=== PATIENT | male | born 1990 | race Caucasian/White ===

== ENCOUNTER 2016-09-28 07:54 | Emergency (ER) | payer OTHER ==
--- NOTE | 2016-09-28 10:01 | ER Document Report ---
ED General - General Chief Complaint: Toothache Stated Complaint: TOOTH PAIN Time Seen by Provider: 09/28/16 10:00 Mode of Arrival: Ambulatory Information source: Patient Notes: Patient is a 26-year-old male who presents with upper and lower right-sided jaw pain that started suddenly when he woke up this morning. He has not taken anything for pain. He states the pain radiates up into his face and appearing in a headache. He is unsure which tooth is bothering him. He states he is unable to afford a dentist because he does not have health insurance. Denies any fever, chills, gum swelling or bleeding. TRAVEL OUTSIDE OF THE U.S. IN LAST 30 DAYS: No - Related Data Allergies/Adverse Reactions: cortisone [Cortisone] Allergy (Severe, Verified 09/28/16 07:57) Abscess at injection site hydrocodone bitartrate [From Vicodin] Allergy (Verified 09/28/16 07:57) Past Medical History - General Information source: Patient - Social History Smoking Status: Current Every Day Smoker Family History: Reviewed & Not Pertinent, DM Patient has suicidal ideation: No Patient has homicidal ideation: No Neurological Medical History: Denies: Hx Seizures Renal/ Medical History: Denies: Hx Peritoneal Dialysis Past Surgical History: Reports: Hx Abdominal Surgery - hernia repair, Hx Orthopedic Surgery - left knee benign bone tumor removed - Immunizations Hx Diphtheria, Pertussis, Tetanus Vaccination: Yes Review of Systems - Review of Systems Constitutional: See HPI EENT: See HPI Cardiovascular: No symptoms reported Respiratory: No symptoms reported Gastrointestinal: No symptoms reported Genitourinary: No symptoms reported Male Genitourinary: No symptoms reported Musculoskeletal: No symptoms reported Skin: No symptoms reported Hematologic/Lymphatic: No symptoms reported Neurological/Psychological: No symptoms reported Physical Exam - Vital signs Vitals: Temp Pulse Resp BP Pulse Ox 98.3 F 44 L 15 134/67 H 100 09/28/16 07:59 09/28/16 07:59 09/28/16 07:59 09/28/16 07:59 09/28/16 07:59 - Notes Notes: PHYSICAL EXAM: CONSTITUTIONAL: Alert and oriented, well-appearing and in no acute distress. HENT: Normocephalic, atraumatic. Ear canals without erythema or foreign body, TMs pearly ramirez with good bony landmarks. Nares clear without erythema, septal hematoma or deviation, airway patent. Oropharynx clear without erythema, tonsilar exudate or malocclusion. Trachea midline. Uvula midline. Moist mucous membranes. Multiple dental caries with tooth decay on all teeth, most notably #1 -3, 30-32 without gingival or buccal mucosal swelling. No palpable area of infection. EYES: Pupils equal round and reactive to light, EOM intact. Sclera anicteric, conjunctiva are normal. No entrapment. NECK: supple without lymphadenopathy. No midline tenderness or paraspinous muscle spasms. No step-offs or deformities. ROM intact. HEART: Regular rate and rhythm without murmurs. LUNGS: CTAB and equal. No wheezes, rales or rhonchi. BACK: nontender, no paraspinous spasm, 5+/5 strengths, DTRs 2+, SLR -. EXTREMITIES: Normal range of motion, no pitting edema. No cyanosis. Cap Refill < 3 seconds. NEURO: Cranial nerves grossly intact. Normal sensory/motor exams. PSYCH: Normal mood, normal affect. SKIN: Warm and dry. Normal turgor. No rashes or lesions noted. Course - Re-evaluation Re-evalutation: 09/28/16 10:29 Patient seen and examined. Multiple dental caries and tooth decay on all teeth but most notably #1-3, 30-32. Discussed free access to dental care in [facility], [place] and patient states he will would be unable to get off work and drive there. Will provide list of other reduced rate dental care locations for patient. Given 1 dose of pain medicine here, will provides prescriptions for antibiotics and pain medicine to go home with. At this time, will discharge with return precautions and follow-up recommendations. Verbal discharge instructions given at the bedside and opportunity for questions given. Medication warnings reviewed. Patient is in agreement with this plan and has verbalized understanding of return precautions and the need for primary care follow-up in the next 24-72 hours. - Vital Signs Vital signs: Temp Pulse Resp BP Pulse Ox 98.3 F 44 L 15 134/67 H 100 09/28/16 07:59 09/28/16 07:59 09/28/16 07:59 09/28/16 07:59 09/28/16 07:59 Discharge - Discharge Clinical Impression: Dental caries, Toothache Condition: Stable Disposition: HOME, SELF-CARE Additional Instructions: TOOTHACHE: Your pain is due to dental decay. The tooth must be repaired in order for you to feel better. You will, therefore, be referred to a dentist. We do not have dentists on the staff at [facility]. Severe swelling or drainage around a tooth usually means a dental abscess. This also requires evaluation and treatment by the dentist, but antibiotics may be prescribed while awaiting dental treatment. You should be rechecked immediately if you develop major swelling of the face, increasing pain, a lump in the jaw or gums, headache, difficulty swallowing, or fever. ORAL NARCOTIC MEDICATION: You have been given a prescription for pain control. This medication is a narcotic. It's best taken with food, as nausea can result if taken on an empty stomach. Don't operate machinery or drive within six hours of taking this medication. Do not combine this medicine with alcohol, or with any medication which can cause sedation (such as cold tablets or sleeping pills) unless you get permission from the physician. Narcotics tend to cause constipation. If possible, drink plenty of fluids and eat a diet high in fiber and fruits. Please be aware that prescription narcotics also have the potential for abuse. People become addicted to these medications because of the general sense of wellbeing that they induce. This feeling along with a significant reduction in tension, anxiety, and aggression provides a stimulating seductive quality to these drugs. Once your pain is under control, we encourage you to discard your unused narcotics. FOLLOW-UP CARE: You have been referred for follow-up care to the dentists listed below. Call the dentists office for an appointment as you were instructed or within the next two days. If you experience worsening or a significant change in your symptoms, notify the physician immediately or return to the Emergency Department at any time for re-evaluation. [facility] [address] [place], [place] Sunday mornings, by appointment [facility] [address] [place] [address] [facility] [address] [facility] [address] [facility].C. [facility] [address] [facility] [email or web address] [facility] [address] [place] [address] Sunday- 8:00am to 5:00 pm Will see patients from other [facility]. Charges based on income and family size and accepts Medicare, Medicaid, and Insurances Will pull molars [facility] Student [facility]ics [facility] [id number] Hours of Operation 8:00 am - 4:30 pm weekdays The following dental offices accept Medicaid: [facility] Dr. Butt Dr. Dos Santos Dr. Brown Dr. Dennison Jared Christian, María, and Steven oral surgery Dr. Combs ([place]) Dr. Crowell ([place]) [facility] Drs. Cole ([place]) Dr. Delatorre ([place]) [facility] Dr. Rivera ([place]) Drs. Mcmanus and ([place]) Medicaid Care Line Prescriptions: Acetaminophen with Codeine [Tylenol #3 Tablet] 1 each PO Q6HP PRN #20 tablet PRN Reason: Amox Tr/Potassium Clavulanate [Augmentin 875-125 Tablet] 1 tab PO BID 10 Days Forms: Elevated Blood Pressure, Return to Work
[2016-09-28] MEDS ORDERED: OXYCODONE-ACETAMINOPHEN 5-325 MG TABLET PO ONE (10:21)
[2016-09-28 10:54] VITALS: BP 126/68
== END 2016-09-28 10:55 | disposition home or self-care (01) ==
LOC: ER 07:54
DX: K02.9 Dental caries, unspecified (principal); R68.84 Jaw pain; F17.200 Nicotine dependence, unspecified, uncomplicated
CPT/HCPCS: 99282

== ENCOUNTER 2017-01-13 13:00 | Emergency (ER) | payer OTHER ==
[2017-01-13] MEDS ORDERED: DIPHENHYDRAMINE HCL 25 MG CAPSULE PO ONE (13:30)
[2017-01-13] MEDS ORDERED: BUPIVACAINE HCL 0.5 % INJ/PF 30 ML SDV INJ ONE (13:30)
[2017-01-13] MEDS ORDERED: PENICILLIN V POTASSIUM 500 MG TABLET PO ONE (13:30)
[2017-01-13] MEDS ORDERED: OXYCODONE-ACETAMINOPHEN 5-325 MG TABLET PO ONE (13:30)
--- NOTE | 2017-01-13 13:40 | ER Document Report ---
ED Oral Problem - General Chief Complaint: Toothache Stated Complaint: TOOTH PAIN Time Seen by Provider: 01/13/17 13:19 Notes: Patient is a 26-year-old male presents emergency department complaining of left upper jaw pain. Patient states that that started about 2 days ago. Patient states that he has poor dentition and often gets tooth infections. Patient states that he has been trying to come up with enough money to be seen by an oral surgeon to have dental extraction. Patient denies any fever, chills admits to associated headache that is responding to Motrin. Otherwise he denies any nausea, vomiting, fever, chills, difficulty swallowing, difficulty breathing. Tolerating p.o. without any difficulty otherwise healthy male TRAVEL OUTSIDE OF THE U.S. IN LAST 30 DAYS: No - Related Data Allergies/Adverse Reactions: cortisone [Cortisone] Allergy (Severe, Verified 09/28/16 07:57) Abscess at injection site hydrocodone bitartrate [From Vicodin] Allergy (Verified 09/28/16 07:57) Past Medical History - Social History Smoking Status: Current Every Day Smoker Chew tobacco use (# tins/day): No Frequency of alcohol use: None Drug Abuse: None Family History: Reviewed & Not Pertinent, DM Neurological Medical History: Denies: Hx Seizures Renal/ Medical History: Denies: Hx Peritoneal Dialysis Past Surgical History: Reports: Hx Abdominal Surgery - hernia repair, Hx Orthopedic Surgery - left knee benign bone tumor removed - Immunizations Hx Diphtheria, Pertussis, Tetanus Vaccination: Yes Review of Systems - Review of Systems Constitutional: No symptoms reported EENT: See HPI -: Yes All other systems reviewed and negative Physical Exam - Vital signs Vitals: Temp Pulse Resp BP Pulse Ox 98 F 44 L 16 147/79 H 98 01/13/17 13:03 01/13/17 13:03 01/13/17 13:03 01/13/17 13:03 01/13/17 13:03 - General General appearance: Appears well, Alert In distress: None - HEENT Mouth/Lips: Caries, Dental fracture Mucous membranes: Normal Teeth diagram: 1 - Evidence of dental caries with enamel decay and chronic fractures. Patient states that teeth 15-18 are the source of his pain. No surrounding gingival inflammation or abscess Pharynx: Normal. No: Peritonsillar abscess, Retropharyngeal abscess, Potential airway comprom. Neck: Normal, Supple - Respiratory Respiratory status: No respiratory distress Chest status: Nontender Breath sounds: Normal Chest palpation: Normal - Cardiovascular Rhythm: Regular Heart sounds: Normal auscultation, S1 appreciated, S2 appreciated - Neurological Neuro grossly intact: Yes Cognition: Normal Orientation: AAOx4 Maru Coma Scale Eye Opening: Spontaneous Maru Coma Scale Verbal: Oriented Gray Coma Scale Motor: Obeys Commands Gray Coma Scale Total: 15 Speech: Normal Cranial nerves: Normal Cerebellar coordination: Normal Additional motor exam normals: Equal legal practice manager. No: Weakness Sensory: Normal Course - Re-evaluation Re-evalutation: 01/13/17 14:04 Presentation is most consistent with likely an infected tooth. Airway is patent. Vitals within normal limits. Patient is able swallow without any difficulty. There is no significant facial swelling. Patient will be started on antibiotics. I've instructed to follow-up with dentistry as earliest ability for definitive management. Return precautions and follow-up recommendations have been discussed at length. - Vital Signs Vital signs: Temp Pulse Resp BP Pulse Ox 98 F 44 L 16 147/79 H 98 01/13/17 13:03 01/13/17 13:03 01/13/17 13:03 01/13/17 13:03 01/13/17 13:03 Procedures - Additional Procedures Dental block Additional Procedures: Other Discharge - Discharge Clinical Impression: Toothache Condition: Good Disposition: HOME, SELF-CARE Instructions: Penicillin V K ([facility]), Toothache ([facility]) Additional Instructions: You have been seen for dental pain. It is very important that you follow-up with a dentist for definitive care. Please return if you develop fever greater than 101, swelling in your face, vomiting, difficulty breathing or swallowing, or any other symptoms that are concerning to you. For pain you should take ibuprofen 600 mg every 6 hours as needed. [facility] [address] [place], [place] Sunday mornings, by appointment [facility] [address] [place] [address] [facility] [address] [facility] [address] [email or web address] [facility] [address] [place] [address] Sunday- 8:00am to 5:00 pm Will see patients from other [facility]. Charges based on income and family size and accepts Medicare, Medicaid, and Insurances Will pull molars [facility] Student [facility] [place]note 2] [id number] Hours of Operation 8:00 am - 4:30 pm weekdays The following dental offices accept Medicaid: [facility] Dr. Butt Dr. Dos Santos Dr. Brown Dr. Dennison Jared Christian, María, and Steven oral surgery Dr. Combs ([place]) Dr. Crowell ([place]) [facility] Drs. Cole ([place]) Dr. Delatorre ([place]) [facility] Dr. Rivera ([place]) Drs. Mcmanus and ([place]) Medicaid Care Line Prescriptions: Penicillin V Potassium [Penicillin Vk 500 mg Tablet] 500 mg PO BID #20 tablet
[2017-01-13] MEDS ORDERED: LIDOCAINE 2% VISCOUS SOLN 20 ML UDCUP PO ONE (14:06)
[2017-01-13 14:19] VITALS: BP 127/63
== END 2017-01-13 14:19 | disposition home or self-care (01) ==
LOC: ER 13:00
PROC: 3E0T3BZ Introduction of Anesthetic Agent into Peripheral Nerves and Plexi, Percutaneous Approach (ICD-10-PCS; principal; 2017-01-13)
DX: K08.89 Other specified disorders of teeth and supporting structures (principal); R68.84 Jaw pain; F17.200 Nicotine dependence, unspecified, uncomplicated
CPT/HCPCS: 99282; 64400; J3490

== ENCOUNTER 2017-01-14 06:39 | Emergency (ER) | payer OTHER ==
[2017-01-14 06:45] VITALS: BP 134/68
--- NOTE | 2017-01-14 07:03 | ER Document Report ---
ED General - General Mode of Arrival: Ambulatory Information source: Patient TRAVEL OUTSIDE OF THE U.S. IN LAST 30 DAYS: No - HPI Onset: Other - 2-3 days Associated symptoms: Other - see above - General Chief Complaint: Toothache Stated Complaint: HEADACHE, TOOTACHE Time Seen by Provider: 01/14/17 06:49 Notes: Patient is a 26 year old male who presents to the ED with complaints of a migraine, facial pain, ear pain and dental pain x2-3 days. Patient was seen in the ED yesterday and given antibiotics for his dental pain and was told to follow up with a dentist. Patient states he use to have migraines and was on Imatrex. Patient states this feels like a normal migraine for him. He does not have a PCP. (LEONOR HERNANDEZ) - Related Data Allergies/Adverse Reactions: cortisone [Cortisone] Allergy (Severe, Verified 01/14/17 06:42) Abscess at injection site hydrocodone bitartrate [From Vicodin] Allergy (Verified 01/14/17 06:42) Past Medical History - General Information source: Patient - Social History Smoking Status: Unknown if Ever Smoked Family History: Reviewed & Not Pertinent, DM Patient has suicidal ideation: No Patient has homicidal ideation: No Neurological Medical History: Denies: Hx Seizures Renal/ Medical History: Denies: Hx Peritoneal Dialysis Past Surgical History: Reports: Hx Abdominal Surgery - hernia repair, Hx Orthopedic Surgery - left knee benign bone tumor removed - Immunizations Hx Diphtheria, Pertussis, Tetanus Vaccination: Yes Review of Systems - Review of Systems Constitutional: No symptoms reported EENT: See HPI, Blurred vision, Ear pain, Mouth pain, Other - facial pain Cardiovascular: No symptoms reported Respiratory: No symptoms reported Gastrointestinal: No symptoms reported Genitourinary: No symptoms reported Male Genitourinary: No symptoms reported Musculoskeletal: No symptoms reported Skin: No symptoms reported Hematologic/Lymphatic: No symptoms reported Neurological/Psychological: See HPI, Headaches Physical Exam - General General appearance: Appears well, Alert In distress: None - HEENT Head: Normocephalic, Atraumatic, Other - no facial swelling Eyes: Normal Extraocular movements intact: Yes Pupils: PERRL Mouth/Lips: Other - more dentition throughout, no abscess, all teeth are rotton Neck: Normal - Respiratory Respiratory status: No respiratory distress Breath sounds: Normal - Cardiovascular Rhythm: Regular Heart sounds: Normal auscultation Murmur: No - Abdominal Inspection: Normal Distension: No distension Tenderness: Nontender - Back Back: Normal - Extremities General upper extremity: Normal inspection, Normal ROM General lower extremity: Normal inspection, Normal ROM - Neurological Neuro grossly intact: Yes - Psychological Associated symptoms: Normal affect, Normal mood - Skin Skin Temperature: Warm Skin Moisture: Dry Skin Color: Normal - Vital signs Vitals: Temp Pulse Resp BP Pulse Ox 97.7 F 43 L 18 134/68 H 100 01/14/17 06:42 01/14/17 06:42 01/14/17 06:42 01/14/17 06:42 01/14/17 06:42 - Vital Signs Vital signs: Temp Pulse Resp BP Pulse Ox 97.7 F 67 18 134/68 H 100 01/14/17 06:42 01/14/17 07:20 01/14/17 06:42 01/14/17 06:42 01/14/17 06:42 Discharge - Discharge Clinical Impression: Chronic dental pain Cephalgia Qualifiers: Headache type: unspecified Headache chronicity pattern: unspecified pattern Intractability: not intractable Qualified Code(s): R51 - Headache Condition: Stable Disposition: HOME, SELF-CARE Additional Instructions: Toothache Your pain is due to dental decay. The tooth must be repaired in order for you to feel better. You will, therefore, be referred to a dentist. Severe swelling or drainage around a tooth usually means a deep dental abscess. This also requires evaluation and treatment by the dentist, but antibiotics may be prescribed while awaiting dental treatment. You should be rechecked immediately if you develop major swelling of the face, increasing pain, a lump in the jaw or gums, headache, or fever. Headache The physician does not feel that the headache you are experiencing has a serious underlying cause. Most headaches are due to emotional stress, with resultant muscle tension (tension headache). Occasionally, headaches are secondary to changes in the blood vessels of the scalp (vascular headache and migraine headache). Sometimes, a headache is the first symptom of another developing illness, such as a viral infection. You have no evidence of stroke, bleeding, meningitis, or other serious cause of your headache. The treatment of headaches varies with the severity and cause of the pain. Not all headaches need pain shots. In fact, there is evidence that using narcotics for headaches may make them worse in the long run. The physician will determine the therapy that's in your best interest. If you develop a fever, if the headache is different from any you've previously experienced, or if the headache progressively worsens, then call your physician at once or go to the emergency room. Referrals: [facility] [Provider Group] - Follow up in 3-5 days Domonique Attestation: 01/14/17 07:08 I personally performed the services described in the documentation reviewed the documentation recorded by my scribe in my presence and it accurately and completely records my words and actions (JOCELYN ROSENBAUM) Domonique Documentation - Scribe Written by Domonique:: domonique Cain, 01/14/2017, 1021 acting as scribe for :: García
[2017-01-14] MEDS ORDERED: KETOROLAC TROMETHAMINE 60 MG/2 ML SDV IM ONE (07:05)
[2017-01-14] MEDS ORDERED: DIPHENHYDRAMINE HCL 50 MG/ML VIAL IM ONE (07:05)
[2017-01-14] MEDS ORDERED: METOCLOPRAMIDE HCL 10 MG TABLET PO ONE (07:06)
--- NOTE | 2017-01-14 13:53 | ER Document Report ---
Doctor's Note Notes: 01/14/17 13:52 Patient seen and evaluated at bedside in no acute distress has poor dentition throughout no active dental abscesses or cellulitis. He is requesting narcotics. He is not appropriate in this situation. He also has friends with him that are sleeping on the floor. Patient was already seen yesterday given antibiotics follow-up with the dental physician and they said he could not have that many teeth removed so he has been given instructions to go elsewhere. He is awake alert GCS 15 no neurological deficits given family doctor for follow- up and dental list. Discussed reasons for ED return sooner
== END 2017-01-14 07:29 | disposition home or self-care (01) ==
LOC: ER 06:39
DX: G89.29 Other chronic pain (principal); K08.9 Disorder of teeth and supporting structures, unspecified; R51 Headache; H92.09 Otalgia, unspecified ear; Z88.6 Allergy status to analgesic agent
CPT/HCPCS: 99283; 96372; J1200; J1885

== ENCOUNTER 2017-01-14 16:17 | Emergency (ER) | payer OTHER ==
[2017-01-14 16:26] VITALS: BP 138/69
--- NOTE | 2017-01-14 16:46 | ER Document Report ---
HPI - HPI Pain Level: 5 Notes: Patient is a 26-year-old male who presents the ED complaining of left upper and lower jaw pain, dental pain, and left-sided headache 3 days. Patient states that he has not been able to work because of the pain. Patient was seen on the , yesterday, and was given a dental block and antibiotics. Patient states that the dental block worked really well for him for a while, but the pain returned. Patient then returned this morning and was given a migraine cocktail of Toradol, Compazine, and Benadryl which only lasted for an hour or 2 when he got home and then his pain in his mouth came back. Patient states that he has been taking his antibiotic as directed. He was given viscous lidocaine at his other visit, but that does not last for more than 20 minutes at a time. Otherwise he is still able to eat and drink, but does have a decreased appetite. Patient states that he is allergic to cortisone and hydrocodone. Denies any fever, neck pain/stiffness, changes in vision/speech/mentation/ hearing, URI, sore throat, chest pain, palpitations, syncope, cough, shortness of breath, wheeze, dyspnea, abdominal pain, nausea/vomiting/diarrhea, urinary retention, dysuria, hematuria, or rash. - ROS Notes: REVIEW OF SYSTEMS: CONSTITUTIONAL : Denies fever, chills, or sweats. Denies recent illness. EENT: see hpi CARDIOVASCULAR: Denies chest pain. Denies palpitations or racing or irregular heart beat. Denies ankle edema. RESPIRATORY: Denies cough, cold, or chest congestion. Denies shortness of breath, difficulty breathing, or wheezing. GASTROINTESTINAL: Denies abdominal pain or distention. Denies nausea, vomiting , or diarrhea. Denies blood in vomitus, stools, or per rectum. Denies black, tarry stools. Denies constipation. GENITOURINARY: Denies difficulty urinating, painful urination, burning, frequency, blood in urine, or discharge. MUSCULOSKELETAL: Denies back or neck pain or stiffness. Denies joint pain or swelling. SKIN: Denies rash, lesions or sores. NEUROLOGICAL: see hpi. Denies confusion or altered mental status. Denies passing out or loss of consciousness. Denies dizziness or lightheadedness. Denies weakness or paralysis or loss of use of either side. Denies problems with gait or speech. Denies sensory loss, numbness, or tingling. Denies seizures. PSYCHIATRIC: Denies anxiety or stress. Denies depression, suicidal ideation, or homicidal ideation. ALL OTHER SYSTEMS REVIEWED AND NEGATIVE. Dictation was performed using [employer] voice recognition software - REPRODUCTIVE Reproductive: DENIES: : - DERM Skin Color: Normal Past Medical History - Social History Smoking Status: Current Every Day Smoker Family History: Reviewed & Not Pertinent, DM Patient has suicidal ideation: No Patient has homicidal ideation: No Neurological Medical History: Denies: Hx Seizures Renal/ Medical History: Denies: Hx Peritoneal Dialysis Past Surgical History: Reports: Hx Abdominal Surgery - hernia repair, Hx Orthopedic Surgery - left knee benign bone tumor removed - Immunizations Hx Diphtheria, Pertussis, Tetanus Vaccination: Yes Vertical Provider Document - CONSTITUTIONAL Agree With Documented VS: Yes Notes: PHYSICAL EXAMINATION: GENERAL: Well-appearing, well-nourished and in no acute distress. HEAD: Atraumatic, normocephalic. EYES: Pupils equal round and reactive to light, extraocular movements intact, sclera anicteric, conjunctiva are normal. ENT: EAC clear b/l. TM's intact b/l without erythema, fluid, or perforation. Nares patent and without discharge. oropharynx clear without exudates. No tonsilar hypertrophy or erythema. Moist mucous membranes. No sinus tenderness. Uvula midline. No palatine shift. No tongue protrusion. No facial swelling. Mouth: Poor dentition throughout with caries and decay. No abscess or purulent discharge noted. + minimal tenderness to the #17-18, #16. NECK: Normal range of motion, supple without lymphadenopathy. No rigidity/ meningismus. LUNGS: Breath sounds clear to auscultation bilaterally and equal. No wheezes rales or rhonchi. HEART: Regular rate and rhythm without murmurs, rubs, gallops. Extremities: No cyanosis, clubbing, or edema b/l. Peripheral pulses 2+. Capillary refill less than 3 seconds. NEUROLOGICAL: Cranial nerves grossly intact. Normal speech, normal gait. Normal sensory, motor exams PSYCH: Normal mood, normal affect. SKIN: Warm, Dry, normal turgor, no rashes or lesions noted. - INFECTION CONTROL TRAVEL OUTSIDE OF THE [place] IN LAST 30 DAYS: No - RESPIRATORY O2 Sat by Pulse Oximetry: 98 Course - Re-evaluation Re-evalutation: 01/14/17 17:30 Patient is an afebrile, well-hydrated, 26-year-old male who presents the ED for his third visit in 24 hours for the same toothache/LAMBERT. Vitals are stable. PE otherwise unremarkable for any focal neurological deficits. Pt has very poor dentition throughout. Pt has already been prescribed antibiotics. He has not tried to call any dentist office at this time (although most are closed on sundays). Pt was already told by Dr. Mariano that he will not be getting any narcotics for his pain. A local dental block for his #16 dental pain was performed successfully w/o complication. Mandibular dental block to the left side was also performed successfully w/o complication. Pt noted improvement/ resolution of his pain and LAMBERT thereafter. Low suspicion for any meningitis, sepsis, peritonsillar/pharyngeal abscess, respiratory compromise, Manoj's, temporal arteritis, or other emergent systemic condition at this time. Patient is aware this condition can change from initial presentation and he needs to monitor symptoms closely. Conservative measures otherwise for symptoms. Call to schedule an appointment with a dentist for further evaluation and management. Recheck with your PCM this week as well. Return to the ED with any worsening/concerning symptoms otherwise as reviewed in discharge. Patient is in agreement. - Vital Signs Vital signs: Temp Pulse Resp BP Pulse Ox 98.3 F 44 L 12 138/69 H 98 01/14/17 16:23 01/14/17 16:23 01/14/17 16:23 01/14/17 16:23 01/14/17 16:23 Discharge - Discharge Clinical Impression: Toothache Condition: Stable Disposition: HOME, SELF-CARE Instructions: [facility], Dentist, Toothache ([facility]) Additional Instructions: [place] and floss twice daily Maintain fluid intake Take antibiotics as directed Mouthwash, salt water gargles, peroxide rinse as needed Tylenol/ibuprofen as needed Recheck/establish with your PCM this week Call today/tomorrow and schedule an appointment with your dentist for further evaluation* Return to the ED with any worsening symptoms and/or development of fever, headache, facial swelling, swelling of lips/tongue/throat, trouble swallowing, drooling, hoarseness, neck pain/stiffness, chest pain, palpitations, syncope, shortness of breath, trouble breathing, abdominal pain, n/v/d, numbness/tingling , or other worsening symptoms that are concerning to you. Forms: Elevated Blood Pressure Referrals: [facility] [Provider Group] - Follow up as needed [facility] [Provider Group] - Follow up as needed [facility] [Provider Group] - Follow up as needed
== END 2017-01-14 17:34 | disposition home or self-care (01) ==
LOC: ER 16:17
PROC: 3E0T3BZ Introduction of Anesthetic Agent into Peripheral Nerves and Plexi, Percutaneous Approach (ICD-10-PCS; principal; 2017-01-14)
DX: K08.9 Disorder of teeth and supporting structures, unspecified (principal); R68.84 Jaw pain; F17.200 Nicotine dependence, unspecified, uncomplicated
CPT/HCPCS: 99282

== ENCOUNTER 2017-01-23 10:06 | Emergency (ER) | payer OTHER ==
[2017-01-23] MEDS ORDERED: CLINDAMYCIN HCL 150 MG CAPSULE PO ONE (10:46)
[2017-01-23] MEDS ORDERED: ACETAMINOPHEN WITH CODEINE #3 TABLET PO ONE (10:46)
--- NOTE | 2017-01-23 10:50 | ER Document Report ---
HPI - HPI Patient complains to provider of: dental pain Onset: Yesterday Onset/Duration: Persistent, Worse Quality of pain: Sharp Pain Level: 5 Context: Patient complains of chronic dental pain that worsened yesterday. Patient has been taking penicillin without improvement of his symptoms. Patient states he has been taking [id number] Tylenol Motrin without relief. Patient states he does not have money to follow-up with the dentist and does not have transportation to get to cheaper clinics that are out of town. Patient has been evaluated here 3 previous times for this complaint within the past 2 weeks. Associated Symptoms: Other - Dental pain. denies: Fever Exacerbated by: Denies Relieved by: Denies Similar symptoms previously: Yes Recently seen / treated by doctor: No - ROS ROS below otherwise negative: Yes Systems Reviewed and Negative: Yes All other systems reviewed and negative - CONSTITUTIONAL Constitutional: DENIES: Fever, Chills - EENT Notes: Dental pain - NEURO Neurology: DENIES: Headache, Weakness - CARDIOVASCULAR Cardiovascular: DENIES: Chest pain - GASTROINTESTINAL Gastrointestinal: DENIES: Nausea - REPRODUCTIVE Reproductive: DENIES: : - MUSCULOSKELETAL Musculoskeletal: DENIES: Back Pain, Neck Pain - DERM Skin Color: Normal Skin Problems: None Past Medical History - General Information source: Patient - Social History Smoking Status: Current Every Day Smoker Chew tobacco use (# tins/day): No Frequency of alcohol use: None Drug Abuse: None Occupation: None Lives with: Friend Family History: Reviewed & Not Pertinent, DM Patient has suicidal ideation: No - Medical History Medical History: Negative Neurological Medical History: Denies: Hx Seizures Renal/ Medical History: Denies: Hx Peritoneal Dialysis Past Surgical History: Reports: Hx Abdominal Surgery - hernia repair, Hx Orthopedic Surgery - left knee benign bone tumor removed - Immunizations Hx Diphtheria, Pertussis, Tetanus Vaccination: Yes Vertical Provider Document - CONSTITUTIONAL Agree With Documented VS: Yes Exam Limitations: No Limitations General Appearance: WD/WN, No Apparent Distress - INFECTION CONTROL TRAVEL OUTSIDE OF THE [place] IN LAST 30 DAYS: No - HEENT HEENT: Atraumatic, Normocephalic. negative: Pharyngeal Exudate, Pharyngeal Tenderness, Pharyngeal Erythema, Tympanic Membrane Red, Tympanic Membrane Bulging Mouth Diagram: 1 - Tenderness, widespread dental decay, mild gingival inflammation, no drainable abscess, no trismus - NECK Neck: Normal Inspection, Supple. negative: Lymphadenopathy-Left, Lymphadenopathy-Right - RESPIRATORY Respiratory: Breath Sounds Normal, No Respiratory Distress O2 Sat by Pulse Oximetry: 98 - CARDIOVASCULAR Cardiovascular: Regular Rate, Regular Rhythm, No Murmur - MUSCULOSKELETAL/EXTREMETIES Musculoskeletal/Extremeties: MAEW - NEURO Level of Consciousness: Awake, Alert, Appropriate Motor/Sensory: No Motor Deficit - DERM Integumentary: Warm, Dry, No Rash Course - Re-evaluation Re-evalutation: 01/23/17 10:47 Consulted with data recovery planner Patrick Hodge who will help to arrange follow -up with the [facility] 01/23/17 10:48 The patient has been informed that they may have pre-hypertension or hypertension based on a blood pressure reading in the emergency department. I recommend that patient call the primary care provider listed on their discharge instructions or a physician of their choice by this week to arrange follow-up for further evaluation of possible pre-hypertension or hypertension. - Vital Signs Vital signs: Temp Pulse Resp BP Pulse Ox 98.4 F 62 18 149/93 H 98 01/23/17 10:22 01/23/17 10:22 01/23/17 10:22 01/23/17 10:22 01/23/17 10:22 Discharge - Discharge Clinical Impression: Dental caries, Elevated blood pressure reading Condition: Stable Disposition: HOME, SELF-CARE Instructions: Clindamycin ([facility]), Dentist, Toothache ([facility]) Additional Instructions: Return immediately for any new or worsening symptoms Followup with your primary care provider, call tomorrow to make a followup appointment Follow-up with the [facility] located at [address] [place] [address], Prescriptions: Clindamycin HCl [Cleocin 300 mg Capsule] 300 mg PO TID #21 capsule Naproxen [Naprosyn 250 Nmg Tablet] 1 tab PO BID #14 tablet Forms: Elevated Blood Pressure Referrals: [facility] [place] [place] [Provider Group] - Follow up as needed
[2017-01-23 11:06] VITALS: BP 133/69
== END 2017-01-23 11:13 | disposition home or self-care (01) ==
LOC: ER 10:06
DX: K02.9 Dental caries, unspecified (principal); R03.0 Elevated blood-pressure reading, without diagnosis of hypertension; F17.200 Nicotine dependence, unspecified, uncomplicated; Z88.0 Allergy status to penicillin
CPT/HCPCS: 99282